=== PATIENT | male | born 2005 | race Caucasian/White ===

== ENCOUNTER 2023-12-02 21:18 | Emergency (ER) | payer SELFPAY ==
[~2023-12-02] VITALS: Ht 177.8 cm; Wt 65.0 kg
[2023-12-02 22:15] VITALS: TEMP 98.7
[2023-12-02] MEDS ORDERED: ARIP15TA2 PO (23:23)
[2023-12-02] MEDS ORDERED: SERT20OR6 PO (23:23)
[2023-12-02] MEDS ORDERED: RISP0.5T80 PO (23:24)
[2023-12-02 23:45] VITALS: BP 135/77; PULSE 101; RESP 16
== END 2023-12-02 23:59 | disposition home or self-care (01) ==
LOC: EMS 21:30
DX: T40.411A Poisoning by fentanyl or fentanyl analogs, accidental (unintentional), initial encounter (principal); F41.9 Anxiety disorder, unspecified; F31.9 Bipolar disorder, unspecified; F17.210 Nicotine dependence, cigarettes, uncomplicated; F15.90 Other stimulant use, unspecified, uncomplicated; Y92.89 Other specified places as the place of occurrence of the external cause
CPT/HCPCS: 99283; Z7502